=== PATIENT | female | born 1950 | race Caucasian/White ===

== ENCOUNTER 2018-05-09 13:56 | Emergency (ER) | payer MEDICARE, OTHER ==
--- NOTE | 2018-05-09 14:00 | ER Report ---
History and Physical Time Seen By MD: 13:59 HPI/ROS CHIEF COMPLAINT: Hyperglycemia, anxiety HISTORY OF PRESENT ILLNESS: Patient is a 67-year-old female here with complaints of hyperglycemia in the setting of diabetes type II new diagnosis, [place]'s disease status post adrenal resection on Hydrocortef. Reportedly the patient has been driving cross country with her in order to get to [place] where her son is. She reportedly has not driven in several years and gets severe anxiety when she drives. She is supposedly took one of her corticosteroid tablets which she takes for her [place]'s and she also consumed a chocolate milk drink which elevated her glucose levels significantly. She then consumed a significant amount of water as well as a yogurt. She is concerned that her levels of glucose were elevated and presented to the emergency department. She is anxious appearing at time of evaluation. She is noted to be mildly short of breath with oxygen saturations of 85% on room air. She also has a history of fluid retention for which he takes a diuretic. He denies fevers, headache, blurred vision, chest pain, nausea, vomiting. REVIEW OF SYSTEMS: Constitutional: No fever, no chills. Eyes: No discharge. ENT: No sore throat. Cardiovascular: No chest pain, no palpitations. Respiratory: No cough, + shortness of breath. Gastrointestinal: abdominal discomfort, no vomiting. Genitourinary: No hematuria. Musculoskeletal: No back pain. Skin: No rashes. Neurological: No headache. Allergies: Coded Allergies: No Known Drug Allergies (Unverified , 05/09/18) Home Meds Reported Medications Cholecalciferol (Vitamin D3) (VITAMIN D3) 1,000 Unit Tablet, 1000 UNIT PO, TAB 05/09/18 Cyanocobalamin (Vitamin B-12) (Vitamin B12) 2,500 Mcg Tab.chew 05/09/18 Terconazole (TERCONAZOLE) 20 Gm Cream.appl, 20 GM VG 05/09/18 Pregabalin (LYRICA) 150 Mg Capsule, 150 MG PO TID, CAPSULE 05/09/18 Oxycodone/Acetaminophen (OXYCODONE/ACETAMINOPHEN 5MG/325 MG) 5 Mg/325 Mg Tab, 7.5-325 05/09/18 Polyethylene Glycol 3350 (MIRALAX) 17 Gm Powd.pack, 17 GM PO, PKT 05/09/18 Metoprolol Tartrate (METOPROLOL TARTRATE) 25 Mg Tablet, 1 TAB PO QDAY, TAB 05/09/18 [Magnesium] No Conflict Check 05/09/18 Lisinopril/Hydrochlorothiazide (LISINOPRIL-HCTZ 20-12.5 MG TAB) 1 Each Tablet, 1 EACH PO 05/09/18 Levothyroxine Sodium (LEVOTHYROXINE SODIUM) 50 Mcg Tablet, 25 MCG PO QDAY, TAB 05/09/18 Isosorbide Mononitrate (ISOSORBIDE MONONITRATE ER) 30 Mg Tab.er.24h, 30 MG PO 05/09/18 Hydrocortisone (CORTEF) 10 Mg Tablet, 10 MG PO 05/09/18 Furosemide (FUROSEMIDE) 40 Mg Tablet, 1 TAB PO Q48H, TAB 05/09/18 Duloxetine HCl (Duloxetine HCl) 60 Mg Capsule.dr, 30 05/09/18 Clonazepam (CLONAZEPAM) 1 Mg Tablet, 1 MG PO BID, #6 TAB 05/09/18 Constitutional Vital Sign - Last 24 Hours 05/09/18 05/09/18 05/09/18 05/09/18 14:03 14:06 14:11 14:26 Temp 98.4 Pulse 95 94 97 Resp 18 B/P (MAP) 154/78 (103) 154/78 Pulse Ox 85 94 94 O2 Delivery Room Air 05/09/18 05/09/18 05/09/18 05/09/18 14:31 14:41 14:56 15:11 Pulse 96 98 92 B/P (MAP) 148/62 (90) Pulse Ox 93 93 93 05/09/18 05/09/18 05/09/18 15:24 15:26 15:41 Pulse ? O2 Flow Rate 2.0 Intake and Output 05/09/18 05/09/18 05/10/18 15:00 23:00 07:00 Output Total 25 ml Balance -25 ml Physical Exam General Appearance: The patient is alert, has no immediate need for airway protection and no signs of toxicity. + anxious appearing Eyes: Pupils equal and round no pallor or injection. ENT, Mouth: Mucous membranes are dry Respiratory: There are no retractions, lungs are clear to auscultation. Cardiovascular: Regular rate and rhythm. Gastrointestinal: Abdomen is soft and non tender, no masses, bowel sounds normal. Neurological: No focal neuro deficits Skin: Warm and dry, no rashes. Musculoskeletal: Neck is supple non tender. Extremities are nontender, + 2 + edema LE B/L and have full range of motion. DIFFERENTIAL DIAGNOSIS: After history and physical exam differential diagnosis was considered for hyperglycemia, diabetic ketoacidosis, hypokalemia, hyperkalemia, dehydration, altitude sickness. Medical Decision Making Data Points Result Diagram: 05/09/18 1425 05/09/18 1600 Laboratory Hematology Test 05/09/18 14:25 05/09/18 14:58 05/09/18 15:45 05/09/18 16:00 Red Blood Count 4.37 M/uL (4.17-5.56) Mean Corpuscular Volume 91.3 fL (80.0-96.0) Mean Corpuscular Hemoglobin 32.3 pg (26.0-33.0) Mean Corpuscular Hemoglobin Concent 35.4 g/dL (32.0-36.0) Red Cell Distribution Width 13.0 % (11.5-14.5) Mean Platelet Volume 8.4 fL (7.2-11.1) Neutrophils (%) (Auto) 72.0 % (39.4-72.5) Lymphocytes (%) (Auto) 20.2 % (17.6-49.6) Monocytes (%) (Auto) 6.0 % (4.1-12.4) Eosinophils (%) (Auto) 1.2 % (0.4-6.7) Basophils (%) (Auto) 0.6 % (0.3-1.4) Nucleated RBC Relative Count (auto) 0.0 /100WBC Neutrophils # (Auto) 7.3 K/uL (2.0-7.4) Lymphocytes # (Auto) 2.0 K/uL (1.3-3.6) Monocytes # (Auto) 0.6 K/uL (0.3-1.0) Eosinophils # (Auto) 0.1 K/uL (0.0-0.5) Basophils # (Auto) 0.1 K/uL (0.0-0.1) Nucleated RBC Absolute Count (auto) 0.00 K/uL Blood Gas Patient Temperature Unknown DEGREES Venous Blood pH 7.42 (7.31-7.41) Venous Blood Partial Pressure CO2 48 mmHg Venous Blood Partial Pressure O2 41 mmHg Venous Blood HCO3 31 mmol/L Venous Blood Oxygen Saturation 76 % Venous Blood Base Excess 7 mmol/L Oxygen Liters/Minute Unknown Osmolality 295 mOSM/K (275-295) Acetone, Qualitative Negative Urine Color Yellow Urine Clarity Clear Urine pH 7.0 pH (4.8-9.5) Urine Specific [place] 1.008 Urine Protein Negative mg/dL (NEGATIVE) Urine Glucose (UA) Negative mg/dL (NEGATIVE) Urine Ketones Negative mg/dL (NEGATIVE) Urine Blood Negative (NEGATIVE) Urine Nitrite Negative (NEGATIVE) Urine Bilirubin Negative (NEGATIVE) Urine Urobilinogen Negative mg/dL (0.2-1.9) Urine Leukocyte Esterase Negative (NEGATIVE) Urine RBC <1 /HPF (0-2/HPF) Urine WBC None /HPF (0-5/HPF) Urine Squamous Epithelial Cells None /LPF (NONE-FEW) Urine Bacteria Negative /HPF (NONE-FEW) Urine Mucus None /HPF (NONE-FEW) Whole Blood Glucose 231 mg/DL (75-110) Sodium Level 136 mmol/L (137-145) Potassium Level 3.6 mmol/L (3.5-5.0) Chloride Level 95 mmol/L (98-107) Carbon Dioxide Level 29 mmol/L (22-31) Blood Urea Nitrogen 21 mg/dl (7-18) Creatinine 0.90 mg/dl (0.52-1.04) Glomerular Filtration Rate Calc > 60.0 Random Glucose 240 mg/dl (75-110) Calcium Level 8.5 mg/dl (8.4-10.2) Total Bilirubin 0.4 mg/dl (0.2-1.3) Aspartate Amino Transf (AST/SGOT) 26 U/L (0-35) Alanine Aminotransferase (ALT/SGPT) 37 U/L (0-56) Alkaline Phosphatase 81 U/L (0-126) Total Protein 6.4 g/dl (6.3-8.2) Albumin 3.4 g/dl (3.5-5.0) Chemistry Test 05/09/18 14:25 05/09/18 14:58 05/09/18 15:45 05/09/18 16:00 White Blood Count 10.1 k/uL (4.5-11.0) Red Blood Count 4.37 M/uL (4.17-5.56) Hemoglobin 14.1 g/dL (12.0-16.0) Hematocrit 39.9 % (34.0-47.0) Mean Corpuscular Volume 91.3 fL (80.0-96.0) Mean Corpuscular Hemoglobin 32.3 pg (26.0-33.0) Mean Corpuscular Hemoglobin Concent 35.4 g/dL (32.0-36.0) Red Cell Distribution Width 13.0 % (11.5-14.5) Platelet Count 241 K/uL (150-450) Mean Platelet Volume 8.4 fL (7.2-11.1) Neutrophils (%) (Auto) 72.0 % (39.4-72.5) Lymphocytes (%) (Auto) 20.2 % (17.6-49.6) Monocytes (%) (Auto) 6.0 % (4.1-12.4) Eosinophils (%) (Auto) 1.2 % (0.4-6.7) Basophils (%) (Auto) 0.6 % (0.3-1.4) Nucleated RBC Relative Count (auto) 0.0 /100WBC Neutrophils # (Auto) 7.3 K/uL (2.0-7.4) Lymphocytes # (Auto) 2.0 K/uL (1.3-3.6) Monocytes # (Auto) 0.6 K/uL (0.3-1.0) Eosinophils # (Auto) 0.1 K/uL (0.0-0.5) Basophils # (Auto) 0.1 K/uL (0.0-0.1) Nucleated RBC Absolute Count (auto) 0.00 K/uL Blood Gas Patient Temperature Unknown DEGREES Venous Blood pH 7.42 (7.31-7.41) Venous Blood Partial Pressure CO2 48 mmHg Venous Blood Partial Pressure O2 41 mmHg Venous Blood HCO3 31 mmol/L Venous Blood Oxygen Saturation 76 % Venous Blood Base Excess 7 mmol/L Oxygen Liters/Minute Unknown Osmolality 295 mOSM/K (275-295) Acetone, Qualitative Negative Urine Color Yellow Urine Clarity Clear Urine pH 7.0 pH (4.8-9.5) Urine Specific [place] 1.008 Urine Protein Negative mg/dL (NEGATIVE) Urine Glucose (UA) Negative mg/dL (NEGATIVE) Urine Ketones Negative mg/dL (NEGATIVE) Urine Blood Negative (NEGATIVE) Urine Nitrite Negative (NEGATIVE) Urine Bilirubin Negative (NEGATIVE) Urine Urobilinogen Negative mg/dL (0.2-1.9) Urine Leukocyte Esterase Negative (NEGATIVE) Urine RBC <1 /HPF (0-2/HPF) Urine WBC None /HPF (0-5/HPF) Urine Squamous Epithelial Cells None /LPF (NONE-FEW) Urine Bacteria Negative /HPF (NONE-FEW) Urine Mucus None /HPF (NONE-FEW) Whole Blood Glucose 231 mg/DL (75-110) Glomerular Filtration Rate Calc > 60.0 Calcium Level 8.5 mg/dl (8.4-10.2) Total Bilirubin 0.4 mg/dl (0.2-1.3) Aspartate Amino Transf (AST/SGOT) 26 U/L (0-35) Alanine Aminotransferase (ALT/SGPT) 37 U/L (0-56) Alkaline Phosphatase 81 U/L (0-126) Total Protein 6.4 g/dl (6.3-8.2) Albumin 3.4 g/dl (3.5-5.0) Toxicology Test 05/09/18 14:25 Acetone, Qualitative Negative Urinalysis Test 05/09/18 14:58 Urine Color Yellow Urine Clarity Clear Urine pH 7.0 pH (4.8-9.5) Urine Specific [place] 1.008 Urine Protein Negative mg/dL (NEGATIVE) Urine Glucose (UA) Negative mg/dL (NEGATIVE) Urine Ketones Negative mg/dL (NEGATIVE) Urine Blood Negative (NEGATIVE) Urine Nitrite Negative (NEGATIVE) Urine Bilirubin Negative (NEGATIVE) Urine Urobilinogen Negative mg/dL (0.2-1.9) Urine Leukocyte Esterase Negative (NEGATIVE) Urine RBC <1 /HPF (0-2/HPF) Urine WBC None /HPF (0-5/HPF) Urine Squamous Epithelial Cells None /LPF (NONE-FEW) Urine Bacteria Negative /HPF (NONE-FEW) Urine Mucus None /HPF (NONE-FEW) EKG/Imaging EKG Interpretation Test Reason : SOB Blood Pressure : / mmHG Vent. Rate : 094 BPM Atrial Rate : 094 BPM P-R Int : 166 ms QRS Dur : 084 ms QT Int : 376 ms P-R-T Axes : 038 009 032 degrees QTc Int : 470 ms Normal sinus rhythm Normal ECG No previous ECGs available Monitor Interpretation: Normal Sinus Rhythm Imaging 2 VIEWS CHEST INDICATION: Shortness of breath and weakness. COMPARISON: None available FINDINGS: Cardiomediastinal silhouette and pulmonary vessels within normal limits. There is no focal infiltrate or lobar consolidation. There is no pneumothorax or pleural effusion. No nodule. Small scar seen in left midlung. Upper abdomen is unremarkable. No acute bony abnormality. IMPRESSION: 1. No acute cardiopulmonary process. ED Course/Re-evaluation Clinical Indication for ER IV: Hydration, IV Access ED Course Patient is a 67-year-old female here with complaints of hyperglycemia in the setting of diabetes type II new diagnosis, [place]'s disease status post adrenal resection on Hydrocortef. Reportedly the patient has been driving cross country with her in order to get to [place] where her son is. She reportedly has not driven in several years and gets severe anxiety when she drives. She is supposedly took one of her corticosteroid tablets which she takes for her [place]'s and she also consumed a chocolate milk drink which elevated her glucose levels significantly. She then consumed a significant amount of water as well as a yogurt. She is concerned that her levels of glucose were elevated and presented to the emergency department. She is anxious appearing at time of evaluation and was given ativan. Insulin was held until K+ levels returned. Cautious fluid resuscitation was pursued due to the patient's tenuous fluid status. She seems to be in fluid overload on diuretics however she can at the same time be hypovolemic from an intravascular stand point. Chest xray showed no acute infiltrates or consolidations. Labs confirmed that the patient is not currently ketotic, acidotic. UA showed no ketones or signs of infection. Acetone was negative. Glucose continued to trend downward and insulin 10 units was given with 500 ml NS bolus. Patient was placed back on RA and was dropped to . Repeat labs showed glucose trending down appropriately. The patient was monitored while she ambulated and dropped to 80%. I discussed the patient with Dr. Ignacio with the hospitalist service and he agreed that the patient likely would need supplemental oxygen for her continued trip to [place]. ED staff arranged for supplemental oxygen supplies. Depart Departure Latest Vital Signs Vital Signs Date Time Temp Pulse Resp B/P (MAP) Pulse Ox O2 Delivery O2 Flow Rate FiO2 05/09/18 15:41 ??? 05/09/18 15:24 2.0 05/09/18 15:11 93 05/09/18 14:31 148/62 (90) 05/09/18 14:06 98.4 18 Room Air Impression: Primary Impression: Hyperglycemia Additional Impressions: Altitude sickness Hypoxia Condition: Improved Disposition: HOME OR SELF-CARE Patient Instructions: Diabetic Hyperglycemia (ED) Problem Qualifiers LEX BOYD DO May 09, 2018 14:00
[2018-05-09] MEDS ORDERED: INSU HUM REG 100 U/ML(ER ONLY) 10 ML VIAL IV ONE (14:20)
[2018-05-09] MEDS ORDERED: NS(*) 0.9% 500 ML BAG 500 ML IV ONE (14:35)
[2018-05-09] MEDS ORDERED: LORazepam 2 MG/ML VIAL IVP ONE (14:35)
[2018-05-09 14:39] LABS: PLATELET COUNT, AUTOMATED 241 K/uL (150-450)
--- NOTE | 2018-05-09 14:45 | EKG ---
FACILITY: [facility] [place] PATIENT NAME: LINDSAY DAY : [id number] MR: [id number] V: [id number] EXAM DATE: ORDERING PHYSICIAN: LEX BOYD TECHNOLOGIST: DONNA August Reason : SOB Blood Pressure : / mmHG Vent. Rate : 094 BPM Atrial Rate : 094 BPM P-R Int : 166 ms QRS Dur : 084 ms QT Int : 376 ms P-R-T Axes : 038 009 032 degrees QTc Int : 470 ms Sinus rhythm Nonspecific T wave flattening No previous ECGs available Confirmed by MANDY SCHULTZ ([id number] on 05/10/2018 5:37:36 AM Referred By: DEB Confirmed By:MANDY SCHULTZ
--- NOTE | 2018-05-09 15:39 | RADIOLOGY IMAGING REPORT ---
FACILITY: [facility] PATIENT NAME: Ana Sierra : 1950 MR: [id number] V: [id number] EXAM DATE: ORDERING PHYSICIAN: LEX BOYD [place]CHNOLOG[place]: [place] [facility] [place] : 1950 Visit/Account:[id number] Date of Sevice: 05/09/2018 2 VIEWS CHEST INDICATION: Shortness of breath and weakness. COMPARISON: None available FINDINGS: Cardiomediastinal silhouette and pulmonary vessels within normal limits. There is no focal infiltrate or lobar consolidation. There is no pneumothorax or pleural effusion. No nodule. Small scar seen in left midlung. Upper abdomen is unremarkable. No acute bony abnormality. IMPRESSION: 1. No acute cardiopulmonary process. Report Dictated By: Kal Mccall at 05/09/2018 3:35 PM Report E-Signed By: Kal Mccall at 05/09/2018 3:36 PM WSN:[id number]
[2018-05-09] MEDS ORDERED: CLON-303 PO (15:41)
[2018-05-09] MEDS ORDERED: FURO-47 PO (15:41)
[2018-05-09] MEDS ORDERED: HYDR-1 PO (15:41)
[2018-05-09] MEDS ORDERED: CHOL10005 PO (15:41)
[2018-05-09] MEDS ORDERED: ISOS30TA54 PO (15:41)
[2018-05-09] MEDS ORDERED: PREG150C33 PO (15:41)
[2018-05-09] MEDS ORDERED: TERC20CR VG (15:41)
[2018-05-09] MEDS ORDERED: DULO60CA7 (15:41)
[2018-05-09] MEDS ORDERED: PER (15:41)
[2018-05-09] MEDS ORDERED: LEVO50TA86 PO (15:41)
[2018-05-09] MEDS ORDERED: METO25TA93 PO (15:41)
[2018-05-09] MEDS ORDERED: LISI-353 PO (15:41)
[2018-05-09] MEDS ORDERED: POLY17PO25 PO (15:41)
[2018-05-09] MEDS ORDERED: MAGNESIUM (15:41)
[2018-05-09] MEDS ORDERED: CYAN250013 (15:41)
[2018-05-09] MEDS ORDERED: INSU HUM REG 100 U/ML(ER ONLY) 10 ML VIAL SUBQ ONE (16:50)
[2018-05-09 18:45] VITALS: BP 119/62
== END 2018-05-09 19:13 | disposition home or self-care (01) ==
LOC: ER 14:05
DX: E11.65 Type 2 diabetes mellitus with hyperglycemia (principal); T70.20XA Unspecified effects of high altitude, initial encounter; R09.02 Hypoxemia
CPT/HCPCS: 36415; 36416; 71046; 81001; 82009; 82803; 82948; 83930; 85025; 93005; 96361; 96372; 96374; 99284; A4353; J2060; J7040; 82040; 82247; 82310; 82374; 82435; 82565; 82947; 84075; 84132; 84155; 84295; 84450; 84460; 84520; J1815